=== PATIENT | female | born 1965 | race Caucasian/White ===

== ENCOUNTER 2017-05-04 20:26 | Observation (INO) | payer OTHER ==
[~2017-05-04] VITALS: Ht 167.6 cm; Wt 80.0 kg
[2017-05-04] MEDS ORDERED: PREDNISONE (20:37)
[2017-05-04] MEDS ORDERED: BUPROPION (20:37)
[2017-05-04] MEDS ORDERED: ALPRAZOLAM (20:37)
[2017-05-04] MEDS ORDERED: CYCLOBENZAPRINE (20:37)
[2017-05-04 21:21] LABS: BASOPHILS # (AUTO) 0.06 x10^3/uL (0-0.1); BASOPHILS % (AUTO) 1 % (0-1); EOSINOPHILS # (AUTO) 0.43 x10^3/uL (0-0.4); EOSINOPHILS % (AUTO) 4 % (1-7); LYMPHOCYTES # (AUTO) 3.34 x10^3/uL (1-3.4); LYMPHOCYTES % (AUTO) 34 % (22-44); MD NO; MEAN CORPUSCULAR HEMOGLOBIN 31.5 pg (27.0-34.8); MEAN CORPUSCULAR HGB CONC 33.3 g/dL (32.4-35.8); MEAN CORPUSCULAR VOLUME 94.6 fL (80-100); MEAN PLATELET VOLUME 7.5 fL (7.4-10.4); MONOCYTES # (AUTO) 0.58 x10^3/uL (0.2-0.8); MONOCYTES % (AUTO) 6 % (2-9); NEUTROPHILS # (AUTO) 5.39 x10^3/uL (1.8-6.8); NEUTROPHILS % (AUTO) 55 % (42-75); PLATELET COUNT 486 x10^3/uL (130-400); RED BLOOD COUNT 3.47 x10^6/uL (3.82-5.3); RED CELL DISTRIBUTION WIDTH 14.9 % (9.6-15.2)
[2017-05-04 21:31] LABS: ALBUMIN 3.1 g/dL (3.4-5.0); ANION GAP 12 mmol/L (5-15); CALCIUM 7.9 mg/dL (8.5-10.1); CHLORIDE 111 mmol/L (98-107); CREATININE 0.52 mg/dL (0.55-1.02)
[2017-05-04 21:33] LABS: ACETAMINOPHEN < 2 mcg/mL (10-30); SALICYLATE LEVEL < 1.7 mg/dL (2.8-20.0)
[2017-05-04] MEDS ORDERED: POTASSIUM CHLORIDE 20 MEQ TAB.ER.PRT PO ONE (23:00)
[2017-05-05] MEDS ORDERED: LORazepam 1MG TABLET PO ONE (00:30)
[2017-05-05] MEDS ORDERED: ONDANSETRON ODT 4 MG PO PRN (01:00)
[2017-05-05] MEDS ORDERED: DOCUSATE 100 MG CAPSULE PO PRN (01:00)
[2017-05-05] MEDS ORDERED: POLYETHYLENE GLYCOL 17 GM PACKET PO PRN (01:00)
[2017-05-05] MEDS ORDERED: DIPHENHYDRAMINE 50 MG CAPSULE PO PRN (01:00)
[2017-05-05] MEDS ORDERED: LORazepam 1MG TABLET ONE (01:05)
[2017-05-05] MEDS ORDERED: POTASSIUM CHLORIDE 20 MEQ TAB.ER.PRT ONE (01:05)
[2017-05-05 01:50] LABS: AMPHETAMINE SCREEN, URINE Negative (Negative); BARBITURATE SCREEN, URINE Negative (Negative); BENZODIAZEPINE SCREEN, URINE Positive (Negative); CANNABINOID SCREEN, URINE Positive (Negative); COCAINE SCREEN, URINE Negative (Negative); METHADONE SCREEN, URINE Negative (Negative); OPIATE SCREEN, URINE Negative (Negative)
[2017-05-05 01:59] VITALS: BP 126/78
[2017-05-05] MEDS: ACETAMINOPHEN 325 MG TABLET PO PRN ×3 (02:08→23:55)
[2017-05-05 07:35] VITALS: BP 145/91
[2017-05-05] MEDS: LORazepam 1MG TABLET PO PRN ×4 (07:35→23:55)
[2017-05-05] MEDS ORDERED: CYCLOBENZAPRINE 10 MG TABLET PO PRN (11:00)
[2017-05-05 11:43] VITALS: BP 149/101
[2017-05-05 16:39] VITALS: BP 173/107
[2017-05-05] MEDS ORDERED: IRBE1TAB13 PO (16:49)
[2017-05-05] MEDS ORDERED: SERT20OR PO (17:05)
[2017-05-05] MEDS ORDERED: QUET300T5 PO (17:07)
[2017-05-05] MEDS ORDERED: BUPR150T73 PO (17:10)
[2017-05-05 17:30] VITALS: BP 158/103
[2017-05-05] MEDS ORDERED: POTASSIUM CHLORIDE 20 MEQ TAB.ER.PRT PO ONE (18:30)
[2017-05-05 20:00] VITALS: BP 140/96
[2017-05-05] MEDS: HYDROCHLOROTHIAZIDE 25 MG TABLET PO SCH (20:31)
[2017-05-05] MEDS: QUETIAPINE 100MG TABLET PO SCH (20:32)
[2017-05-05] MEDS: BUPROPION SR 150 MG TABLET PO SCH (20:32)
[2017-05-05] MEDS: IRBESARTAN 150 MG TABLET PO SCH (20:32)
[2017-05-05] MEDS ORDERED: QUETIAPINE 25MG TABLET PO SCH (21:00)
[2017-05-06 06:48] LABS: ANION GAP 8 mmol/L (5-15); CALCIUM 8.5 mg/dL (8.5-10.1); CHLORIDE 107 mmol/L (98-107); CREATININE 0.57 mg/dL (0.55-1.02)
[2017-05-06 08:00] VITALS: BP 125/92
[2017-05-06] MEDS: HYDROCHLOROTHIAZIDE 25 MG TABLET PO SCH ×2 (08:28→20:26)
[2017-05-06] MEDS: SERTRALINE 100MG TABLET PO SCH (08:28)
[2017-05-06] MEDS: BUPROPION SR 150 MG TABLET PO SCH ×2 (08:28→20:27)
[2017-05-06] MEDS: ACETAMINOPHEN 325 MG TABLET PO PRN (08:33)
[2017-05-06] MEDS: LORazepam 1MG TABLET PO PRN ×4 (08:33→21:58)
[2017-05-06] MEDS: IRBESARTAN 150 MG TABLET PO SCH ×2 (09:00→20:25)
[2017-05-06] MEDS: IBUPROFEN 200 MG TABLET PO PRN ×2 (12:19→20:27)
[2017-05-06 12:24] VITALS: BP 140/88
[2017-05-06] MEDS ORDERED: IBUPROFEN 800 MG TABLET PO PRN (12:30)
[2017-05-06 17:49] VITALS: BP 145/94
[2017-05-06 19:43] VITALS: BP 144/93
[2017-05-06] MEDS: QUETIAPINE 100MG TABLET PO SCH (20:26)
[2017-05-07] MEDS: IBUPROFEN 200 MG TABLET PO PRN ×3 (02:11→14:41)
[2017-05-07] MEDS: LORazepam 1MG TABLET PO PRN ×5 (02:11→21:39)
[2017-05-07] MEDS: ACETAMINOPHEN 325 MG TABLET PO PRN ×2 (02:17→10:43)
[2017-05-07 08:00] VITALS: BP 124/80
[2017-05-07] MEDS: SERTRALINE 100MG TABLET PO SCH (08:37)
[2017-05-07] MEDS: HYDROCHLOROTHIAZIDE 25 MG TABLET PO SCH ×2 (08:37→20:07)
[2017-05-07] MEDS: BUPROPION SR 150 MG TABLET PO SCH ×2 (08:37→20:05)
[2017-05-07] MEDS: IRBESARTAN 150 MG TABLET PO SCH ×2 (08:38→20:07)
[2017-05-07 10:45] VITALS: BP 116/82
[2017-05-07 16:45] VITALS: BP 134/94
[2017-05-07] MEDS: QUETIAPINE 100MG TABLET PO SCH (20:08)
[2017-05-07 20:12] VITALS: BP 132/82
[2017-05-08 07:20] VITALS: BP 115/88
[2017-05-08] MEDS: LORazepam 1MG TABLET PO PRN ×2 (07:20→13:56)
[2017-05-08] MEDS: IBUPROFEN 200 MG TABLET PO PRN (07:20)
[2017-05-08 08:17] VITALS: BP 115/75
[2017-05-08] MEDS: BUPROPION SR 150 MG TABLET PO SCH (08:18)
[2017-05-08] MEDS: SERTRALINE 100MG TABLET PO SCH (08:18)
[2017-05-08] MEDS: HYDROCHLOROTHIAZIDE 25 MG TABLET PO SCH (08:18)
[2017-05-08] MEDS: IRBESARTAN 150 MG TABLET PO SCH (08:19)
[2017-05-08 11:49] VITALS: BP 127/90
== END 2017-05-08 15:41 ==
LOC: ED 05-05 00:18 → SUATTDRO 05-05 00:43 → EDIP 05-05 00:48 → 2N 05-05 01:43
PROVIDERS: ADMIT Family Medicine; ATTEND Family Medicine
DX: T14.91XA Suicide attempt, initial encounter (principal); T42.4X2A Poisoning by benzodiazepines, intentional self-harm, initial encounter; E87.6 Hypokalemia; F32.9 Major depressive disorder, single episode, unspecified; Y92.89 Other specified places as the place of occurrence of the external cause; Y93.89 Activity, other specified; Y99.8 Other external cause status; Z82.49 Family history of ischemic heart disease and other diseases of the circulatory system; Z83.3 Family history of diabetes mellitus; Z72.89 Other problems related to lifestyle
CPT/HCPCS: 36415; 80048; 80307; 80329; 82040; 85025; 99285; G0378; G0480